=== PATIENT | male | born 1990 | race Caucasian/White ===

== ENCOUNTER 2021-03-21 13:18 | Emergency (ER) | payer OTHER ==
[~2021-03-21] VITALS: Ht 182.9 cm; Wt 95.3 kg
--- NOTE | 2021-03-21 14:00 | NUR ---
BIBRA TO ER BED 10. DROWSY BUT EASILY ARROUSABLE TO VOICE. NOT IN RESP DSITRESS. BROUGHT IN FOR HEROIN OVERDOSE. PER PT, HE SMOKED HEROIN. EMS REPOTRED THAT THE PATIENT WAS GIVEN 4MG OF NARCAN PRIOR TO EMS ARRIVAL. PT DENIES ANY SUICIDAL NOR HOMICIDAL IDEATION. PT IS ON MONITOR. AWAITING MD FOR EVAL.
--- NOTE | 2021-03-21 14:00 | NUR ---
Note steveone in EDM - 03/21/21 at 1422 by FABIOLA BIBRA TO ER BED 10. DROWSY BUT EASILY ARROUSABLE TO VOICE. NOT IN RESP DSITRESS. BROUGHT IN FOR HEROIN OVERDOSE. PER PT, HE SMOKED HEROIN. PT RECEIVED NARCAN ON 2MG NASSLAY AND 2MG IM. PT DENIES ANY SUICIDAL NOR HOMICIDAL IDEATION. PT IS ON MONITOR. AWAITING MD FOR EVAL.
[2021-03-21 14:14] LABS: BASOPHILS % (AUTO) 0.5 % (0.0-2.0); EOSINOPHILS % (AUTO) 3.7 % (0.0-6.0); HEMATOCRIT 43 % (39-51); LYMPHOCYTES # (AUTO) 2.2 K/uL (0.8-4.8); LYMPHOCYTES % (AUTO) 38.3 % (20.0-44.0); MEAN CORPUSCULAR HGB CONC 33 g/dl (31.0-36.0); MEAN CORPUSCULAR VOLUME 83 fL (80-96); MONOCYTES # (AUTO) 0.7 K/uL (0.1-1.30); MONOCYTES % (AUTO) 11.4 % (2.0-12.0); NEUTROPHILS # (AUTO) 2.7 K/uL (1.8-8.9); NEUTROPHILS % (AUTO) 46.1 % (43.0-81.0); PLATELET COUNT (AUTO) 323 K/uL (150-450); RED BLOOD CELL COUNT(AUTO) 5.14 MIL/uL (4.5-6.0); WHITE BLOOD COUNT (AUTO) 5.9 K/uL (4.3-11.0)
--- NOTE | 2021-03-21 14:23 | NUR ---
URINE SENT TO LAB
[2021-03-21 14:25] LABS: CALCIUM, SERUM 8.3 mg/dL (8.5-10.1); CARBON DIOXIDE 31 mmol/L (21-32); CHLORIDE 104 mmol/L (98-107); CREATININE 1.2 mg/dL (0.6-1.3); GLUCOSE 102 mg/dL (74-106); POTASSIUM 4.5 mmol/L (3.5-5.1); SODIUM SERUM 139 mmol/L (136-145); UREA NITROGEN, BLOOD 12 mg/dL (7-18)
[2021-03-21 14:32] LABS: ALANINE AMINOTRANSFERASE 20 U/L (12-78); ALBUMIN 3.5 g/dL (3.4-5.0); ALCOHOL, BLOOD < 3 mg/dL (0-0); ALKALINE PHOSPHATASE 74 U/L (46-116); ASPARTATE AMINOTRANSFERASE 16 U/L (15-37); BILIRUBIN,DIRECT 0.1 mg/dL (0.0-0.2); BILIRUBIN,TOTAL 0.2 mg/dL (0.2-1.0); TOTAL PROTEIN, SERUM 7.7 g/dL (6.4-8.2)
--- NOTE | 2021-03-21 15:11 | NUR ---
PATIENT RESTING, NO DISTRESS NOTED. VSS.
--- NOTE | 2021-03-21 15:45 | NUR ---
Horse Breeder consult: learning support services director consult requested for overdose and homelessness. Patient is a 31-year-old, male. SW met with patient at his bedside in the emergency department. Patient was alert and oriented x2, name and location. Patient stated that the year was "2021." Patient was unable to recall the situation which brought him to the hospital. Per chart, patient was brought in by ambulance on 03/21/21 for an opiate overdose. Patient stated that he currently lives at [facility]: [address] [place] [address]. Patient stated that his current source of income is food stamps and [employer]. Patient reported substance use which includes methamphetamine and opiate use. Patient reported daily use. Patient reported that he has not had prior treatment for his substance use. Patient denied history of mental illness. Patient denied suicidal or homicidal ideation. SW offered the patient Medication-Assisted Treatment clinic resources, addiction, and homeless resources. Patient accepted the resources and thanked SW. Patient is in the pre-contemplation stage of change for his opiate use, and did not verbalize any intention to change his behavior in the foreseeable future. Patient's affect was normal range and his mood was calm. SW offered the patient homeless resources. Patient accepted the resources and thanked SW. Patient signed the homeless waiver and SW filed waiver in the patient's chart. Patient plans to return to his prior living arrangement at [facility] and stated that he will use public transportation. PLAN: Patient will return to his prior living arrangement at [employer]. No further SS intervention at this time, however SW will remain available as needed. RESOURCES: MAT resources: [facility]: [address] [place] [address] [facility]: [address] [place] [address] [facility]: [address] [place] [phone] SPA 4 | [facility] Provider: [employer] Address: [address] [place] [address], [facility] # of Beds: 48 Population Served: Co[facility] Provider: [facility] [employer] Serve Address: [address] [facility], [address] # of Beds: 73 Population Served: Coed SPA 6 | [facility] Provider: [facility] Last Address: [address] [place], [address] # of Beds: 63 Population Served: Coed SPA 3 | [facility] Provider: [employer] [place] Address: [address] [facility], [address] # of Beds: 75 Population Served: Coed SPA 8 | [facility] Provider: [employer] [place] Address: [address] [facility], [address] # of Beds: 80 Population Served: Coed SPA 1 | [facility] Provider: [employer] [place] Address: [address] [place] [address], [address] # of Beds: 85 Population Served: Coed [facility] 2 | [facility] Provider: Jazmine [facility] Address: Confidential (please call for location) # of Beds: 52 Population Served: Yovanid [facility] 4 | [facility] Provider: [facility] Address: [address] [facility] [facility], [address] # of Beds: 49 Population Served: Santosh [facility] Provider: First To Serve Address: [address] [facility], [address] # of Beds: 27 Population Served: Yovanid Hygiene: [facility]: [address] ; [facility] [address] [facility] ; [facility] [address] . Food Resources: [employer] at [facility]- [address] [place]; Meet Each Need with Dignity ([facility]) [address] [facility]; [facility] Food [facility] [address] [facility]; [facility] [address] [facility] [place]. Mental Health resources provided: [facility] [address] [place] [address] ; [facility] [employer] [address] [facility] [address], [place] [address] ; [facility] [address] [place] [address] ; [facility] [address] [place], [place] [id number] Healthcare Clinics: [facility] [address] [facility], [address] [place]. [place] ; [facility] [address] [facility] [facility] [address] [place] [address]; [facility] [address] [facility]. [place] [phone] Counseling--Outpatient [facility] [address] [facility], [address] [place], [place] [id number] (Specializes in in-depth psychotherapy for emotional distress: anxiety, depression, interpersonal conflicts, life transitions, childhood abuse) PSYCHIATRIC OUTPATIENT SERVICES [facility] Partial Hospitalization and Intensive Outpatient Program (Managed Care and [place] Only) [address] [facility] [address] [facility] Partial Hospitalization and Outpatient Program [address] [facility]. [address] [place], [place] [id number] [facility] Partial Hospitalization and Outpatient Program [address] [facility]. [place], [place] [id number] [facility] [employer] [address] [facility]. [address] [place], [place] [id number] [facility] Partial Hospitalization and Outpatient Program [address] [place], [place] [phone] Substance use resources provided included: [facility] Substance Abuse Self-Helpline (SAS) ; [facility] [address] [facility]. [place] [phone] ; [facility] [address] [facility] [address] ; [facility] [address] [facility] [address] ; [facility] [address] [facility] [address] ; [facility] [address] [facility] [phone] ; [facility]; [facility] [place]; [place]; Alcoholics Anonymous -[facility]
--- NOTE | 2021-03-21 18:32 | NUR ---
patient asleep, arousable to name, no distress noted. VSS
--- NOTE | 2021-03-21 20:04 | NUR ---
PT PASSED PO CHALLENGE. ABLE TO AMBULATE WITH STEADY GAIT. VSS. ER AWARE. PT WILL BE DISCHARGED.
[2021-03-21] MEDS ORDERED: NALO4SPR NS (20:06)
[2021-03-21 20:16] VITALS: BP 119/76
--- NOTE | 2021-03-21 20:16 | NUR ---
Patient discharged to home in stable condition. Written and verbal after care instructions given. Patient verbalizes understanding of instruction. Pt ambulated out of ED. VSS.
== END 2021-03-21 20:17 | disposition home or self-care (01) ==
LOC: ER 13:32
DX: T40.1X1A Poisoning by heroin, accidental (unintentional), initial encounter (principal); R94.31 Abnormal electrocardiogram [ECG] [EKG]; Z60.2 Problems related to living alone; Y92.89 Other specified places as the place of occurrence of the external cause
CPT/HCPCS: 36415; 71045-TC; 80048-TC; 80076-TC; 85025-TC; G0480